=== PATIENT | female | born 1990 | race Caucasian/White ===

== ENCOUNTER 2018-11-02 12:20 | Outpatient (CLI) | payer OTHER | END 2018-11-02 15:50 | disposition home or self-care (01) | LOC: OBT 12:20 → L-D 12:25 → OBT 15:50 | PROVIDERS: ATTEND Obstetrics & Gynecology | DX: O13.3 Gestational [pregnancy-induced] hypertension without significant proteinuria, third trimester (principal); Z3A.38 38 weeks gestation of pregnancy | CPT/HCPCS: 76818; 80053; 81003; 82575; 84156; 84560; 85025; 85384; 85610; 85730; Z7500; G0463 ==